=== PATIENT | female | born 1985 | race Caucasian/White ===

== ENCOUNTER 2019-04-11 00:44 | Emergency (ER) | payer OTHER ==
[2019-04-11] MEDS ORDERED: Octyl 2-Cyanoacrylate 1 Tube TOP ONE (01:12)
--- NOTE | 2019-04-11 01:19 | EDM.PDOC ---
ED HPI GENERAL MEDICAL PROBLEM - General Chief Complaint: Skin Complaint Stated Complaint: LACERATION ON LEFT HAND Time Seen by Provider: 04/11/19 01:01 - History of Present Illness INITIAL COMMENTS - FREE TEXT/NARRATIVE: HISTORY AND PHYSICAL: History of present illness: The patient is a 33-year-old female who is up-to-date on her tetanus shot and has a long-standing history of cutting which started when she was 15 and presents after doing some cutting this evening due to stressors in her life and concerns about one of the wounds. The patient shows me multiple old scars on bilateral forearms but more significantly at the left forearm throughout the entire length as well as on the dorsal aspect of the hand. She says that she is having problems in her marriage and with her mother as well as multiple other areas in her personal life and she does the cutting because she feels like she can control this pain when she cannot control her emotional stress and pain. She denies any suicidal ideation and says that her intent was not to hurt herself in any suicidal fashion but the cutting does help with her to release some of her stress and anxiety. She has recently relocated here from [place] and has no local resources and is asking for local resources to connect with to discuss some of her issues and problems. When asked directly about intent to seriously harm herself the patient denies. Tonight injuries are located on the dorsal aspect of the hand near the base of the thumb and she only came in this evening because she felt one of them was bleeding more than usual and she was concerned. She has no weakness numbness or tingling in her fingers or hand Review of systems: As per history of present illness and below otherwise all systems reviewed and negative. Past medical history: As per history of present illness and as reviewed below otherwise noncontributory. Surgical history: As per history of present illness and as reviewed below otherwise noncontributory. Social history: No reported history of drug or alcohol abuse. Family history: As per history of present illness and as reviewed below otherwise noncontributory. Physical exam: General: Well-developed well-nourished female who is nontoxic and vital signs are noted by me. HEENT: Atraumatic, normocephalic, pupils reactive, negative for conjunctival pallor or scleral icterus, mucous membranes moist, throat clear, neck supple, nontender, trachea midline. Lungs: Clear to auscultation, breath sounds equal bilaterally, chest nontender. Heart: S1S2, regular in rhythm no overt murmurs Abdomen: Soft, nondistended, nontender. NABS Pelvis: Deferred Genitourinary: Deferred. Rectal: Deferred. Extremities: At the right volar forearm there are several well-healed scars seen but at the left volar forearm there are multiple pending the full length from the elbow to the wrist and inclusive of the wrist and certain aspects of the hand. At the dorsal aspect of the hand near the base of the thumb there are several very superficial linear laceration seen with one slightly deeper than the rest extending just beneath the epidermal layer but not extending into the subcutaneous tissue. This slightly deeper laceration measures 1.75 cm in length. There is no bleeding or surrounding soft tissue swelling. The patient can range of motion at the thumb and there is no bony defects or deformities.. Neurovascular unremarkable. Neuro: Awake, alert, oriented. Cranial nerves II through XII unremarkable. Cerebellum unremarkable. Motor and sensory unremarkable throughout. Exam nonfocal. Diagnostics: [] Therapeutics: Cleaning of wound with Steri-Strips and Dermabond per nursing I discussed with the patient at length local resources and options to connect here in town now that she is currently living here to help deal with her stressors in a more constructive way and she is accepting of this help. There is nothing in this patient's presentation that is anything new or different from her prior history of cutting and the patient does admit to me that she was concerned about coming here that people would misinterpret her behaviors and she reiterates that she is not suicidal. Impression: superficial lacerations of left hand Definitive disposition and diagnosis as appropriate pending reevaluation and review of above. L thumb Pain Score (Numeric/FACES): 5 - Related Data Allergies Allergy/AdvReac Type Severity Reaction Status Date / Time adhesive Allergy Rash Verified 04/11/19 01:05 amoxicillin Allergy Anaphylactic Verified 04/11/19 01:05 Shock bee venom protein (honey bee) Allergy Anaphylactic Verified 04/11/19 01:05 Shock Penicillins Allergy Anaphylactic Verified 04/11/19 01:05 Shock ED ROS GENERAL - Review of Systems Review Of Systems: Comprehensive ROS is negative, except as noted in HPI. ED EXAM, SKIN/RASH Exam: See Below (See dictation) Course - Vital Signs Last Recorded V/S: Last Vital Signs Temp 36.4 C 04/11/19 01:00 Pulse 104 H 04/11/19 01:00 Resp 18 04/11/19 01:00 BP 148/100 H 04/11/19 01:00 Pulse Ox 98 04/11/19 01:00 - Orders/Labs/Meds Orders: Active Orders 24 hr Category Date Time Status Communication Order [RC] STAT Care 04/11/19 01:12 Ordered Octyl 2-Cyanoacrylate [Dermabond Advance] Med 04/11/19 01:12 Once 1 applic TOP ONETIME ONE Medication Orders Octyl Cyanoacrylate (Dermabond Advance) 1 applic TOP ONETIME ONE Stop: 04/11/19 01:13 Meds: Medications Generic Name Dose Route Start Last Admin Trade Name Frenatalie PRN Reason Stop Dose Admin Octyl Cyanoacrylate 1 applic 04/11/19 01:12 Dermabond Advance TOP 04/11/19 01:13 ONETIME ONE Departure - Departure Time of Disposition: :19 Disposition: Home, Self-Care 01 Condition: Good Clinical Impression: Superficial laceration of left hand Qualifiers: Encounter type: initial encounter Qualified Code(s): S61.412A - Laceration without foreign body of left hand, initial encounter - Discharge Information Referrals: PCP,None [Primary Care Provider] - Additional Instructions: The following information is given to patients seen in the emergency department who are being discharged to home. This information is to outline your options for follow-up care. We provide all patients seen in our emergency department with a follow-up referral. The need for follow-up, as well as the timing and circumstances, are variable depending upon the specifics of your emergency department visit. If you don't have a primary care physician on staff, we will provide you with a referral. We always advise you to contact your personal physician following an emergency department visit to inform them of the circumstance of the visit and for follow-up with them and/or the need for any referrals to a consulting specialist. The emergency department will also refer you to a specialist when appropriate. This referral assures that you have the opportunity for followup care with a specialist. All of these measure are taken in an effort to provide you with optimal care, which includes your followup. Under all circumstances we always encourage you to contact your private physician who remains a resource for coordinating your care. When calling for followup care, please make the office aware that this follow-up is from your recent emergency room visit. If for any reason you are refused follow-up, please contact the [facility] emergency department at and ask to speak to the emergency department charge nurse. [facility] Primary care- Internal Medicine and Family [address] [address] Keep the areas clean and dry and do not apply bacitracin or Neosporin as this will dissolve E medical glue. Please connect using local resources you have been given for further care and return to ED as needed and as discussed Sepsis Event Note - Evaluation Sepsis Screening Result: No Definite Risk - Focused Exam Vital Signs: Vital Signs Temp Pulse Resp BP Pulse Ox 04/11/19 01:00 36.4 C 104 H 18 148/100 H 98 Date Exam was Performed: 04/11/19 Time Exam was Performed: 01:12 - My Orders Last 24 Hours: My Active Orders 04/11/19 01:12 Communication Order [RC] STAT Octyl 2-Cyanoacrylate [Dermabond Advance] 1 applic TOP ONETIME ONE - Assessment/Plan Last 24 Hours: My Active Orders 04/11/19 01:12 Communication Order [RC] STAT Octyl 2-Cyanoacrylate [Dermabond Advance] 1 applic TOP ONETIME ONE
== END 2019-04-11 01:31 | disposition home or self-care (01) ==
LOC: MW.ED 00:44
DX: S61.412A Laceration without foreign body of left hand, initial encounter (principal); Z88.1 Allergy status to other antibiotic agents; Z88.0 Allergy status to penicillin; Z91.030 Bee allergy status; Z91.048 Other nonmedicinal substance allergy status; Y28.8XXA Contact with other sharp object, undetermined intent, initial encounter
CPT/HCPCS: 12001; 99282-25; 99283; A9270-GY